=== PATIENT | male | born 1945 ===

== ENCOUNTER 2017-11-29 09:04 | Emergency (ER) | payer SELFPAY ==
[2017-11-29 09:11] VITALS: TEMP 98.2
[2017-11-29] MEDS ORDERED: Lidocaine 5% Patch TD STA (09:39)
--- NOTE | 2017-11-29 09:39 | C.PDOC ---
History Of Present Illness 72-YEAR-OLD MALE, PRESENTS TO THE EMERGENCY DEPARTMENT s/p fall CO R THIGH INJURY. PS HAD KEYS IN R POCKET, FELL ONTO R THIGH AND KEYS WENT INTO LEG. CO PAIN TO SIDE OF R THIGH. DENIES OTHER ASSOC SX. TAKES NSAIDS FOR CHRONIC LBP, NONE ACCOUNT RECEIVABLE ASSOCIATE. EXAM MILD DIST NONTOXIC EXT R LE +GEN TEND R LAT THIGH NO GROSS DEFORM, SWELL. AROM WO DIFF, REPRODUC PAIN. NO HEMATOMA SKIN INTACT NEURO INTACT Time Seen by Provider: 11/29/17 09:22 Chief Complaint (Nursing): Lower Extremity Problem/Injury History Per: Patient History/Exam Limitations: no limitations Past Medical History Reviewed: Historical Data, Nursing Documentation, Vital Signs Vital Signs: Last Vital Signs Temp 98.2 F 11/29/17 09:08 Pulse 56 L 11/29/17 10:21 Resp 18 11/29/17 10:21 BP 137/76 11/29/17 10:21 Pulse Ox 96 11/29/17 10:21 Surgical History: Appendectomy, Back Surgery, Cholecystectomy Family History: States: No Known Family Hx - Social History Hx Alcohol Use: No Hx Substance Use: No Review Of Systems Gastrointestinal: Negative for: Vomiting Musculoskeletal: Positive for: Other (R thigh pain s/p fall) Neurological: Negative for: Weakness, Numbness, Headache Physical Exam - Physical Exam Appears: Non-toxic, No Acute Distress Skin: Normal Color, Warm, Dry, No Rash Head: Atraumatic, Normacephalic Eye(s): bilateral: PERRL Nose: Normal Oral Mucosa: Moist Lips: Normal Appearing Neck: Normal ROM Extremity: No Deformity, Other (R LE +GEN TEND R LAT THIGH NO GROSS DEFORM, SWELL. AROM WO DIFF, REPRODUC PAIN. NO HEMATOMA) Neurological/Psych: Oriented x3, Normal Speech ED Course And Treatment O2 Sat by Pulse Oximetry: 98 Pulse Ox Interpretation: Normal - Other Rad R FEMUR X-Ray: Interpreted by Me (NEG) R SHOULDER X-Ray: Interpreted by Me (NEG) Disposition Counseled Patient/Family Regarding: Studies Performed, Diagnosis, Need For Followup - Disposition Referrals: [facility] [Outside] [facility] [Outside] Disposition: HOME/ ROUTINE Disposition Time: 10:13 Condition: IMPROVED Additional Instructions: APLICA PARCHE AL BARON AFECTADA. MAX 3 PARCHES A LA VEZ. RETIRE EL PATCH 12 HORAS DESPUS DE LA APLICACIN INICIAL. ALTERNATIVAS 12 HORAS ACTIVADAS, 12 HORAS DESACTIVADAS. Prescriptions: Acetaminophen/Codeine [Tylenol/Codeine 300 MG/30 MG] 1 tab PO Q4H #12 tab Cyclobenzaprine [Flexeril] 10 mg PO TID #15 tab Lidocaine 5% [Lidoderm] 1 ea TD PRN PRN #10 patch PRN Reason: Pain, Moderate (4-7) Instructions: Contusion (DC), Shoulder Sprain (DC) Forms: [employer] (Armenian) Print Language: [place] - Clinical Impression Clinical Impression: Thigh hematoma, Shoulder sprain - Scribe Statement The provider has reviewed the documentation as recorded by the Scribe (Laurita Solis) All medical record entries made by the Scribe were at my direction and personally dictated by me. I have reviewed the chart and agree that the record accurately reflects my personal performance of the history, physical exam, medical decision making, and the department course for this patient. I have also personally directed, reviewed, and agree with the discharge instructions and disposition.
[2017-11-29] MEDS ORDERED: Lidocaine 5% Patch TD ONE (09:47)
--- NOTE | 2017-11-29 10:03 | RAD ---
PROCEDURE: Right Femur Radiographs. HISTORY: Trauma COMPARISON: None. TECHNIQUE: AP and Lateral Radiographs of the right femur. FINDINGS: FEMUR: Bone alignment is normal. There is no acute displaced fracture or bone destruction. There is mild diffuse bone demineralization. SOFT TISSUES: Normal. OTHER FINDINGS: None. IMPRESSION: No acute fracture or dislocation.
--- NOTE | 2017-11-29 10:05 | RAD ---
PROCEDURE: Radiographs of the Right Shoulder HISTORY: Trauma COMPARISON: No prior. FINDINGS: BONES: There is diffuse bone demineralization there is no acute displaced fracture or bone destruction. 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 Joints he SOFT TISSUES: Normal. OTHER FINDINGS: None. IMPRESSION: No acute fracture or dislocation.
[2017-11-29 10:22] VITALS: BP 137/76; PULSE 56; RESP 18
[2017-11-29 11:06] VITALS: O2SAT 98
== END 2017-11-29 11:35 | disposition home or self-care (01) ==
LOC: C.ER 09:04
DX: S70.11XA Contusion of right thigh, initial encounter (principal); S43.401A Unspecified sprain of right shoulder joint, initial encounter; W19.XXXA Unspecified fall, initial encounter
CPT/HCPCS: 73030; 73552; 96372; 97116; 97161; 99284; G8978; G8979; G8980; J1885